=== PATIENT | male | born 1960 | race Caucasian/White ===

== ENCOUNTER → 2019-09-21 | Day surgery (SDC) | payer MEDICARE, OTHER ==
[~2019-09-21] MED LIST: Lactated Ringers 1,000 ML IV SCH
--- NOTE | 2019-09-21 14:06 | OR ---
DATE OF OPERATION: 09/21/2019 PREOPERATIVE DIAGNOSIS: ALTERED BOWEL HABITS. POSTOPERATIVE DIAGNOSIS: ALTERED BOWEL HABITS. SURGEON: Rasta Lau MD PROCEDURE: DIAGNOSTIC COLONOSCOPY. ANESTHESIA: MAC. COMPLICATIONS: None. SPECIMEN: None. FINDINGS: 1. Full-length colonoscopy. 2. Sigmoid diverticulosis, mild to moderate. 3. Internal hemorrhoids. RECOMMENDATIONS: Followup colonoscopy every 10 years. INDICATIONS: The patient has had a prior colonoscopy about 6 years ago, it was with a poor prep. He has been having some issues with constipation at times. We elected to proceed with a diagnostic scope. DESCRIPTION OF PROCEDURE: The patient was prepped and draped, placed in the left lateral decubitus position. A lubricated Olympus colonoscope was inserted and with ease advanced to the cecum. Direct visualization of the ileocecal valve and appendiceal orifice was accomplished. The bowel prep was adequate. Upon withdrawal of the scope, the right transverse and descending colons were benign. The patient had scattered diverticula through the sigmoid colon, mild- to-moderate in severity. No inflammatory changes. I could find no signs of any polyps, masses, ulcerations, or bleeding sites. No vascular abnormalities or signs of colitis. The rectal vault was benign. Retroflexion showed some perianal hemorrhoid disease. Air was then suctioned, scope removed without complication. CATRACHITO/LUCIANA /[id number]
== END ==
LOC: CC.SDS 09:19
PROVIDERS: ATTEND Family Medicine
DX: K57.30 Diverticulosis of large intestine without perforation or abscess without bleeding (principal); K64.8 Other hemorrhoids; K21.9 Gastro-esophageal reflux disease without esophagitis; N40.0 Benign prostatic hyperplasia without lower urinary tract symptoms; M47.812 Spondylosis without myelopathy or radiculopathy, cervical region; I10 Essential (primary) hypertension; E78.00 Pure hypercholesterolemia, unspecified; F32.9 Major depressive disorder, single episode, unspecified; F17.210 Nicotine dependence, cigarettes, uncomplicated; Z88.0 Allergy status to penicillin; Z79.82 Long term (current) use of aspirin; Z79.1 Long term (current) use of non-steroidal anti-inflammatories (NSAID); Z79.891 Long term (current) use of opiate analgesic
CPT/HCPCS: J7120

== ENCOUNTER 2019-10-07 01:08 | Emergency (ER) | payer MEDICARE, OTHER ==
[2019-10-07] MEDS ORDERED: HYDROmorphone 1 MG/ML Syringe IVPUSH ONE ×2 (01:47→03:34)
[2019-10-07] MEDS ORDERED: Ondansetron 4 MG/2 ML SDV IVPUSH ONE (01:50)
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
[2019-10-07] MEDS ORDERED: Iopamidol 755 Mg/ML 200 ML Bottle IV ONE (01:58)
[2019-10-07] MEDS: Sodium Chloride 0.9% 1,000 ML IV ONE ×2 (02:30→06:52)
[2019-10-07] MEDS ORDERED: Sodium Chloride 0.9% 1,000 ML IV SCH (02:30)
[2019-10-07] MEDS ORDERED: Lidocaine 2% Jelly 5 ML Tube ONE (03:02)
[2019-10-07] MEDS ORDERED: Ondansetron 4 MG/2 ML SDV IVPUSH PRN (06:46)
[2019-10-07] MEDS ORDERED: HYDROmorphone 0.5 MG/0.5 ML Syringe IVPUSH PRN (06:46)
[2019-10-07] MEDS: HYDROmorphone 1 MG/ML Syringe IVPUSH PRN ×2 (07:33→09:34)
== END 2019-10-07 11:10 ==
LOC: CC.ED 01:08
DX: K56.609 Unspecified intestinal obstruction, unspecified as to partial versus complete obstruction (principal); E78.00 Pure hypercholesterolemia, unspecified; I10 Essential (primary) hypertension; Z79.899 Other long term (current) drug therapy; Z79.82 Long term (current) use of aspirin; Z88.0 Allergy status to penicillin
CPT/HCPCS: 36415; 74177; 80053; 83605; 83690; 84484; 85025; 86140; 93010; 96361; 96374; 96375; 96376; 99284; 99285-25; J1170; J2405; J7030; Q9967